=== PATIENT | male | born 1945 | race Caucasian/White ===

== ENCOUNTER 2022-04-24 11:44 | Emergency (ER) | payer OTHER, SELFPAY ==
[2022-04-24 11:45] VITALS: BP 133/91; PULSE 102; RESP 18; TEMP 37.8; O2SAT 94; BMI 33.3
[2022-04-24 13:02] VITALS: BP 119/81; PULSE 92; RESP 14; TEMP 37.2; O2SAT 95
--- NOTE | 2022-04-24 13:37 | EKG12_ITS ---
Test Reason : Blood Pressure : / mmHG Vent. Rate : 082 BPM Atrial Rate : 082 BPM P-R Int : 150 ms QRS Dur : 104 ms QT Int : 390 ms P-R-T Axes : 024 007 010 degrees QTc Int : 455 ms Normal sinus rhythm Inferior infarct , age undetermined Abnormal ECG Confirmed by [place]OR[place] TAYLOR, LUIS ([id number]), copy editor ASUNCION CLAYTON ([id number]) on 04/27/2022 12:41:04 PM Referred By: Confirmed By:LUIS BARTHOLOMEW MD
[2022-04-24 14:01] LABS: Absolute Lymphocyte Count 0.74 X10^3/uL (0.83-4.51); Basophil# 0.01 X10^3/uL; Basophil% 0.2 % (0-1); Eosinophil# 0.01 X10^3/uL; Eosinophils% 0.2 % (0-5); Hematocrit 44.1 % (40-54); Hemoglobin 14.7 g/dL (13.0-16.5); Lymphocyte # 0.74 X10^3/ul (0.83-4.51); Lymphocyte % 17.3 % (19-41); Mean Corp Hgb Conc 33.3 g/dL (32-36); Mean Corpuscular Hgb 29.1 pg (27.0-32.0); Mean Corpuscular Volume 87.2 fL (80-94); Mean Platelet Vol. 10.4 fl (6.2-12.0); Monocyte% 11.7 % (0-10); NRBC Flagged by Analyzer 0 % (0-5); Neutrophil % 70.4 % (47-70); Platelet Count 151 K/mm3 (150-450); RBC Distribution Width CV 13.5 % (11.6-14.6); RBC Distribution Width SD 43.2 fl (35.1-43.9); Red Blood Count 5.06 M/mm3 (4.6-6.2); White Blood Count 4.3 K/mm3 (4.4-11.0)
--- NOTE | 2022-04-24 14:06 | RAD_ITS ---
STUDY: X-RAY CHEST REASON FOR EXAM: Male, 76 years old. Fever, weakness TECHNIQUE: Single AP portable view of the chest. COMPARISON: None. FINDINGS: EKG electrodes are seen. Increased markings at both lung bases worse at the left lung base suggestive of bibasilar atelectasis. Follow-up is recommended. There is no demonstrated pleural abnormality. Normal size heart. Normal mediastinum and hernandez. Normal visualized pulmonary arteries. There is atherosclerotic calcification of the aortic arch with tortuosity. There are diffuse degenerative changes of the visualized thoracic spine. Normal visualized ribs, clavicles, and shoulders. There is no demonstrated abnormality of the visualized soft tissue structures of the upper abdomen. RAD/Chest 1 View (Portable) IMPRESSION: Increased markings at the lung bases slightly worse at the left lung base. Early bibasilar infiltrates should be ruled out. Electronically Signed: Yossi Santos MD at 14:25 EDT ,
[2022-04-24 14:19] LABS: International Normalized Ratio 1.1; Lactic Acid 0.9 mmol/L (0.4-1.9); Prothrombin Time (Protime)PT. 14.2 SECONDS (11.7-14.9)
[2022-04-24 14:20] LABS: Partial Thromboplast Time 26.8 Seconds (24.1-36.2)
[2022-04-24 14:24] LABS: ALB/GLOB Ratio 0.9 RATIO (0.9-2.4); AST(SGOT) 38 U/L (15-37); Alanine Aminotransfer ALT/SGPT 48 U/L (16-61); Albumin, Serum 3.2 g/dL (3.2-5.0); Alkaline Phosphatase 101 U/L (45-117); Anion Gap 7 (5-15); BUN 17 mg/dL (7-18); BUN/Creat Ratio 19.9 RATIO (10-20); CPK Total, Creatine Kinase 94 U/L (39-308); Calcium,Total 8.8 mg/dL (8.5-10.1); Chloride 106 mmol/L (98-107); Creatinine, Serum 0.86 mg/dL (0.70-1.30); EST Glomerular Filtration Rate 93 mL/min (>60); Est Glom Filt Rate - Afr Amer 112 mL/min (>60); Estimated Creatinine Clearance 72.91 ml/min; Globulin 3.7 g/dL (2.2-4.2); Glucose 158 mg/dL (74-106); Potassium 3.6 mmol/L (3.5-5.1); Protein, Total 6.9 g/dL (6.4-8.2); Sodium Level 137 mmol/L (136-145)
[2022-04-24 15:00] VITALS: BP 134/96; PULSE 75; RESP 21; TEMP 36.8; O2SAT 96
[2022-04-24 15:19] VITALS: TEMP 36.8
--- NOTE | 2022-04-24 15:19 | EX.ED.DYSGE1 ---
HPI History of Present Illness Chief Complaint: Fever Informant: patient and spouse/S.O. Narrative Narrative: Patient is a 76-year-old male with history of cholecystitis which was removed a couple months ago by Dr. Ocampo at [facility]. He is presenting with fever for the past 4 days. His T-max has been 102.6. He has had associated cold sweats and feels very weak. He has noticed some dribbling with urination. Denies any nausea, vomiting or change in bowel habits. Denies any associate abdominal discomfort. Has had decreased appetite. Notes that over the past 4 months has had an unintentional 26 pound weight loss. Is complaining of increased flatulence, belching and early satiety. Denies any sick contacts. No other complaints at this time. PFSH PFSH Medical History Diabetes mellitus HLD (hyperlipidemia) Home Medications cefdinir 300 mg capsule 300 mg PO BID 10 days #20 caps 04/24/22 [Rx Last Taken Unknown] ondansetron 4 mg disintegrating tablet 4 mg PO Q6H PRN nausea and vomiting #14 tabs 04/24/22 [Rx Last Taken Unknown] Allergy/AdvReac Type Severity Reaction Status Date / Time No Known Allergies Allergy Verified 04/24/22 11:47 Surgical History Hx of cholecystectomy Social History Smoking Status: Former smoker ROS ROS ED Constitutional Constitutional ED: Reports chills, fever(s), sweats and weight loss Eyes Eyes: Denies change in vision ENT ENT ED: Denies rhinorrhea or sore throat Cardiovascular Cardiovascular: Denies chest pain or palpitations Respiratory/Chest Respiratory/Chest: Denies cough or dyspnea Gastrointestinal Gastrointestinal: Reports diarrhea; Denies abdominal pain, melena, nausea or vomiting Genitourinary Genitourinary ED: Denies dysuria, hematuria or urinary frequency Musculoskeletal Musculoskeletal: Denies arthralgias or myalgias Integumentary Denies Abrasions or rash Neurologic Neurologic: Reports weakness; Denies headache(s) or paresthesias Psychiatric Psychiatric: Denies anxiety or depression EXAM Physical Exam Const Vital Signs: 04/24/22 11:45 04/24/22 12:52 04/24/22 13:02 Temperature 100.1 F H 99.0 F Temperature Source Oral Oral Pulse Rate 102 H 92 Respiratory Rate 18 14 Respiratory Effort Normal Non-Labored Respiratory Pattern Normal Blood Pressure 133/91 H 119/81 H Blood Pressure Mean 105 93 Pulse Ox 94 95 Oxygen Delivery Method Room Air Room Air 04/24/22 13:51 04/24/22 15:00 04/24/22 15:00 Temperature 98.3 F Temperature Source Axillary Pulse Rate 75 75 Respiratory Rate 21 H 21 H Respiratory Effort Respiratory Pattern Blood Pressure 134/96 H 134/96 H Blood Pressure Mean 108 108 Pulse Ox 96 96 Oxygen Delivery Method Room Air Room Air Room Air 04/24/22 15:19 04/24/22 16:35 04/24/22 16:35 Temperature 98.3 F 100.9 F H 100.9 F H Temperature Source Axillary Oral Oral Pulse Rate 77 Respiratory Rate 20 H Respiratory Effort Respiratory Pattern Blood Pressure 171/74 H Blood Pressure Mean 106 Pulse Ox 94 Oxygen Delivery Method Room Air 04/24/22 16:35 Temperature 100.9 F H Temperature Source Oral Pulse Rate 76 Respiratory Rate 20 H Respiratory Effort Respiratory Pattern Blood Pressure 171/74 H Blood Pressure Mean 106 Pulse Ox 97 Oxygen Delivery Method Room Air Positive well nourished and well developed General Appearance ED: well developed and NAD HEENT Reports dry mucous membranes Mouth ED: Yes dry mucous membranes Mouth: dry mucous membranes Eyes PERRL and EOMs intact bilaterally Neck supple and no JVD Chest Wall inspection of chest normal Resp normal respiratory effort and clear to auscultation bilaterally Cardio regular rate, regular rhythm and no murmurs GI normal to inspection, nondistended, normoactive bowel sounds and non-tender Back/Spine General Back: Negative for CVA tenderness Neuro oriented x3, CN's II-XII intact bilaterally and no sensory deficits noted Motor Exam: Negative for general weakness Psych mental status grossly normal Skin no rashes or lesions noted Skin Narrative: Healing surgical incisions on abdomen consistent with recent laparoscopic cholecystectomy MDM MDM MDM Narrative Medical decision making narrative: Patient is evaluated for 3 to 4 days of fever, night sweats and feeling weak. He has noticed some dribbling with urination. No other localizing symptoms. He did have surgery about 2 months ago for his gallbladder but does not have any abdominal pain. He is having regular bowel movements. He has had some unintentional weight loss does have a remote history of prostate cancer. Work-up is remarkable for leukopenia 4.3. Patient is given 500 cc bolus of IV fluids. He does spike a fever in the emergency room and does meet sepsis criteria however his lactate is normal at 0.9. Urinalysis is consistent with infection with 100 leukoesterase, 25-50 white blood cells and 1+ bacteria. CT of the chest is obtained as x-ray shows a questionable bibasilar infiltrates and he did have recent surgery. This will better evaluate whether he truly does have pneumonia versus a PE. Patient is given a dose of IV Rocephin in the ER. He is given Tylenol for his fever. Patient overall is actually very well-appearing with no CVA tenderness and a benign abdominal exam on repeat evaluation. He would like to try outpatient antibiotics. 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 He will be started on Omnicef to cover for Elvin given he is having systemic symptoms. Lab Data Attestation: I reviewed the patient's lab results. Labs: Laboratory Results - last 24 hr 04/24/22 04/24/22 04/24/22 13:05 13:05 13:45 WBC 4.3 L RBC 5.06 Hgb 14.7 Hct 44.1 MCV 87.2 MCH 29.1 MCHC 33.3 RDW Std Deviation 43.2 RDW Coeff of Saloni 13.5 Plt Count 151 MPV 10.4 Immature Gran % (Auto) 0.200 Neut % (Auto) 70.4 H Lymph % (Auto) 17.3 L [place] % (Auto) 11.7 H Eos % (Auto) 0.2 Baso % (Auto) 0.2 Absolute Neuts (auto) 3.0 Absolute Lymphs (auto) 0.74 L Nucleated RBC % 0 PT 14.2 INR 1.1 APTT 26.8 Sodium 137 Potassium 3.6 Chloride 106 Carbon Dioxide 24.0 Anion Gap 7 BUN 17 Creatinine 0.86 Estim Creat Clear Calc 72.91 Est GFR (MDRD) Af Amer 112 Est GFR (MDRD) Non-Af 93 BUN/Creatinine Ratio 19.9 Glucose 158 H Lactic Acid Calcium 8.8 Total Bilirubin 1.00 AST 38 H ALT 48 Alkaline Phosphatase 101 Total Creatine Kinase 94 Total Protein 6.9 Albumin 3.2 Globulin 3.7 Albumin/Globulin Ratio 0.9 Urine Color Urine Clarity Urine pH Ur Specific [place] Urine Protein Urine Glucose (UA) Urine Ketones Urine Occult Blood Urine Nitrite Urine Bilirubin Urine Urobilinogen Ur Leukocyte Esterase Urine RBC Urine WBC Ur Squamous Epith Cells Urine Bacteria Urine Mucus 04/24/22 04/24/22 13:45 16:00 WBC RBC Hgb Hct MCV MCH MCHC RDW Std Deviation RDW Coeff of Saloni Plt Count MPV Immature Gran % (Auto) Neut % (Auto) Lymph % (Auto) [place] % (Auto) Eos % (Auto) Baso % (Auto) Absolute Neuts (auto) Absolute Lymphs (auto) Nucleated RBC % PT INR APTT Sodium Potassium Chloride Carbon Dioxide Anion Gap BUN Creatinine Estim Creat Clear Calc Est GFR (MDRD) Af Amer Est GFR (MDRD) Non-Af BUN/Creatinine Ratio Glucose Lactic Acid 0.9 Calcium Total Bilirubin AST ALT Alkaline Phosphatase Total Creatine Kinase Total Protein Albumin Globulin Albumin/Globulin Ratio Urine Color Yellow Urine Clarity Clear Urine pH 6.0 Ur Specific [place] 1.020 Urine Protein 30 H Urine Glucose (UA) 1000 H Urine Ketones 15 H Urine Occult Blood 10 H Urine Nitrite Negative Urine Bilirubin Negative Urine Urobilinogen Normal Ur Leukocyte Esterase 100 H Urine RBC 0-5 SEEN Urine WBC 25-50 SEEN Ur Squamous Epith Cells 0-5 SEEN Urine Bacteria 1+ Urine Mucus 0 SEEN Radiography Chest X-Ray - ED: 1 View, Read by ED Physician, Read by Radiologist, Right Infiltrate and Left Infiltrate Diagnostic Testing: Clinical Impression(s) from Imaging Studies Chest X-Ray 04/24/22 14:06 IMPRESSION: Increased markings at the lung bases slightly worse at the left lung base. Early bibasilar infiltrates should be ruled out. Electronically Signed: Yossi Santos MD at 14:25 EDT , Chest CTA 04/24/22 15:23 IMPRESSION: Mild atherosclerotic changes of the thoracic aorta and coronary arteries. Otherwise normal CTA chest examination, without a demonstrated pulmonary embolism or arterial dissection. Electronically Signed: Charly Gómez DO at 16:34 EDT Reading Location ID and State: [address] [place] [address] Tel [phone], Service support , Rhythm Strip Rhythm Strip: Sinus Rhythm Rate: 82 Ectopy: None EKG Initial EKG: Attestation: I personally reviewed and interpreted this EKG as follows: Interpretation: Sinus Rhythm Comments: Normal sinus rhythm and rate of 82 Normal axis Normal intervals Normal ST segments Discharge Plan Triage Chief Complaint: Fever ED Provider: Porsha Vincent Dx/Rx/DC Orders Clinical Impression: Urinary tract infection in male, Fever Instructions: ED Bladder Infection, Male (Adult) Prescriptions: New cefdinir 300 mg capsule 300 mg PO BID 10 Days Qty: 20 0RF ondansetron 4 mg tablet,disintegrating 4 mg PO Q6H PRN (Reason: nausea and vomiting) Qty: 14 0RF Primary Care Provider: Santino Villarreal Referrals: Santino Villarreal PA [Primary Care Provider] - Activity Restrictions/Additional Instructions: Please return to the emergency room if child has worsening symptoms, especially is not improved in the next 24 to 48 hours. Disposition Disposition: Home, Self Care
--- NOTE | 2022-04-24 15:23 | CT_ITS ---
STUDY: CTA CHEST REASON FOR EXAM: Male, 76 years old. Fever. Pulmonary emboli versus pneumonia. RADIATION DOSAGE (If Supplied By Facility): CTDIvol = ( 13.56 ) mGy, DLP = ( 560.88 ) mGycm TECHNIQUE: The examination was performed with the intravenous administration of IV 75mL Isovue-370. Post-processing of the angiographic images was performed, with multiplanar reformation and 3D reconstruction. Individualized dose optimization techniques were used for this CT. COMPARISON: Chest, 04/24/2022. FINDINGS: Normal enhancement of the main pulmonary artery and right and left pulmonary arteries. Normal enhancement of the bilateral peripheral pulmonary arteries. There is no demonstrated pulmonary embolism. Atherosclerotic changes of the thoracic aorta without aneurysm. There is no demonstrated aortic dissection. Normal heart and pericardium. Coronary artery calcifications. Normal mediastinum. Normal hilar regions. Normal visualized trachea and bronchi. The lungs are well expanded. Normal pulmonary parenchyma. Normal pleura. Normal chest wall structures. Normal osseous structures. Normal visualized upper abdomen. CT/CTA Chest W/WO Contrast IMPRESSION: Mild atherosclerotic changes of the thoracic aorta and coronary arteries. Otherwise normal CTA chest examination, without a demonstrated pulmonary embolism or arterial dissection. Electronically Signed: Charly Gómez DO at 16:34 EDT ,
[2022-04-24 16:09] LABS: Mucous, Urine 0 SEEN /hpf (<or=2+)
[2022-04-24 16:24] LABS: Color, Urine Yellow (Yellow); Glucose, Dipstick 1000 mg/dl (Normal); Ketone-Dipstick 15 mg/dl (Negative); Leukocyte Esterase-Dipstick 100 /ul (Negative); Nitrite-Dipstick Negative (Negative); Occult Blood-Urine 10 /ul (Negative); Protein-Dipstick 30 mg/dl (Negative); Urine Bilirubin Dipstick Negative (Negative); Urine Clarity Clear (Clear); Urine Urobilinogen Normal (Normal)
[2022-04-24 16:35] VITALS: BP 171/74; PULSE 76; PULSE 77; RESP 20; TEMP 38.3; O2SAT 94; O2SAT 97
[2022-04-24 16:42] LABS: Bacteria 1+ /hpf (None Seen); Red Blood Cells-Urine 0-5 SEEN /hpf (0-5); Squamous Epithelial Cells - UA 0-5 SEEN /hpf (0-5); White Blood Cells 25-50 SEEN /hpf (0-5)
[2022-04-24] MEDS: Acetaminophen 325 MG Tablet 650 MG PO (16:47)
[2022-04-24] MEDS: Ceftriaxone 1 GM/50 ML BAG IV (17:16)
[2022-04-24 18:13] VITALS: BP 128/77; PULSE 62; O2SAT 96
== END 2022-04-24 18:16 | disposition home or self-care (01) ==
PROVIDERS: Emergency Provider Emergency Medicine; PCP Physician Assistant; Visit Provider Emergency Medicine
DX: N39.0 Urinary tract infection, site not specified (principal); R50.9 Fever, unspecified; Z87.891 Personal history of nicotine dependence
CPT/HCPCS: 71045; 71275; 80053; 81001; 82550; 83605; 85025; 85610; 85730; 87040; 87086; 87088; 87811; 93005; 96361; 96365; 99284; J7040; J7050; Q9967; A4216

== ENCOUNTER 2022-04-30 19:25 | Emergency (ER) | payer OTHER, SELFPAY ==
[2022-04-30 19:26] VITALS: BP 108/69; PULSE 99; RESP 18; TEMP 36.9; O2SAT 98; BMI 32.3
[2022-04-30 19:28] VITALS: BP 108/69; PULSE 99; RESP 18; TEMP 36.9; O2SAT 98
--- NOTE | 2022-04-30 19:35 | RAD_ITS ---
STUDY: X-RAY CHEST REASON FOR EXAM: Male, 76 years old. Fever and abdominal pain. TECHNIQUE: Single AP portable view of the chest. COMPARISON: 04/24/2022 FINDINGS: Slightly improved inspiratory effort when compared to the earlier exam. Decreasing linear atelectasis at the right lung base. Lungs are otherwise clear. There is no demonstrated pleural abnormality. Normal size heart. Normal mediastinum and hernandez. Normal visualized pulmonary arteries. Normal visualized aortic arch and descending thoracic aorta. The thoracic spine is obscured by the mediastinum. There is degenerative osteoarthritis of the bilateral shoulders. There is no demonstrated abnormality of the visualized soft tissue structures of the upper abdomen. RAD/Chest 1 View (Portable) IMPRESSION: Mildly improved inspiratory effort with decreasing right basilar atelectasis. The study is otherwise unchanged. Electronically Signed: Charly Gómez DO at 21:21 EDT ,
--- NOTE | 2022-04-30 19:45 | ED.VIS.GI ---
HPI HPI - GI History of Present Illness Chief Complaint: Complaint Narrative Narrative: 76-year-old male presenting with left lower quadrant abdominal pain, nausea, diarrhea, fever of 101 at home. Patient was seen about 5 days ago for febrile illness and at that point he was noting that he had some dribbling in his urine. He was diagnosed with UTI pyelonephritis and was put on cefdinir. He states that he had been improving up until the last couple of days. Yesterday he had a temperature of 99.1 and today he had a fever of 101. He notes that the diarrhea is new over the last 4 days. No urinary complaints. No shortness of breath, chest pain,, cough. PFSH PFSH Medical History Diabetes mellitus HLD (hyperlipidemia) Home Medications cefdinir 300 mg capsule 300 mg PO BID 10 days #20 caps 04/24/22 [Rx Last Taken Unknown] ondansetron 4 mg disintegrating tablet 4 mg PO Q6H PRN nausea and vomiting #14 tabs 04/24/22 [Rx Last Taken Unknown] amoxicillin 875 mg-potassium clavulanate 125 mg tablet 1 tab PO BID #24 tabs 04/30/22 [Rx Last Taken Unknown] Allergy/AdvReac Type Severity Reaction Status Date / Time No Known Allergies Allergy Verified 04/30/22 19:28 Surgical History Hx of cholecystectomy Social History Smoking Status: Former smoker ROS ROS ED Constitutional Constitutional ED: Reports chills and fever(s) ENT ENT ED: Denies rhinorrhea or sore throat Cardiovascular Cardiovascular: Denies palpitations or racing heartbeat Respiratory/Chest Respiratory/Chest: Denies cough or dyspnea Gastrointestinal Gastrointestinal: Reports abdominal pain, diarrhea and nausea; Denies melena or vomiting Genitourinary Genitourinary ED: Denies dysuria or hematuria Musculoskeletal Musculoskeletal: Denies arthralgias or back pain Integumentary Denies abscess or Abrasions Neurologic Neurologic: Denies headache(s) Psychiatric Psychiatric: Denies anxiety or depression Endocrine Endocrinology: Denies polydipsia or polyphagia EXAM Physical Exam Const Vital Signs: 04/30/22 19:26 04/30/22 19:28 04/30/22 21:28 Temperature 98.5 F 98.5 F 98.4 F Temperature Source Temporal Temporal Temporal Pulse Rate 99 99 87 Respiratory Rate 18 18 22 H Blood Pressure 108/69 108/69 110/74 Blood Pressure Mean 82 86 Pulse Ox 98 98 99 Oxygen Delivery Method Room Air Room Air Room Air 04/30/22 21:59 Temperature Temperature Source Pulse Rate 81 Respiratory Rate 16 Blood Pressure Blood Pressure Mean Pulse Ox 99 Oxygen Delivery Method Positive well nourished and obese General Appearance ED: NAD; Negative for pallor Nutritional Appearance: obese HEENT Reports TM's clear and moist mucous membranes Tympanic Membrane ED: Yes TM's clear Eyes PERRL and EOMs intact bilaterally Neck no lymphadenopathy Resp normal respiratory effort and clear to auscultation bilaterally Cardio regular rate and regular rhythm GI Auscultation: normoactive bowel sounds Palpation: tender LLQ Neuro CN's II-XII intact bilaterally, moves all extremities and no sensory deficits noted Sensorium / Orientation: alert, oriented to person and oriented to place Motor Exam: strength 5/5 throughout Psych mental status grossly normal and thought process normal Skin General Skin Exam: Negative for jaundice or pallor MDM MDM MDM Narrative Medical decision making narrative: Patient presenting with left lower quadrant pain which she can localize with 1 finger. He has diarrhea. He admits to eating nuts this week as well. No history of diverticulitis. Blood work is obtained and his CBC shows a leukocytosis of 14.7. Hemoglobin medic are stable. Renal function electrolytes unremarkable. LFTs within normal limits. Urinalysis is negative. Chest x-ray my interpretation shows no acute cardiopulmonary process and the radiologist agree CT of the abdomen pelvis with IV contrast is obtained and shows acute diverticulitis is uncomplicated. Patient counseled that his previous urine culture was negative and he did not have pyelonephritis. He is to discontinue his other antibiotic single started on Augmentin. He has Zofran at home and does not need a refill. Impression 1. acute sigmoid diverticulitis?uncomplicated 2. Nausea 3. Leukocytosis Lab Data Attestation: I reviewed the patient's lab results. Labs: Laboratory Results - last 24 hr 04/30/22 04/30/22 04/30/22 19:38 19:48 19:48 WBC 14.7 H RBC 4.58 L Hgb 13.4 Hct 40.1 MCV 87.6 MCH 29.3 MCHC 33.4 RDW Std Deviation 43.2 RDW Coeff of Saloni 13.6 Plt Count 201 MPV 9.9 Immature Gran % (Auto) 0.400 Neut % (Auto) 77.4 H Lymph % (Auto) 15.4 L [place] % (Auto) 6.2 Eos % (Auto) 0.5 Baso % (Auto) 0.1 Absolute Neuts (auto) 11.4 H Absolute Lymphs (auto) 2.26 Nucleated RBC % 0 Sodium 141 Potassium 3.4 L Chloride 109 H Carbon Dioxide 24.0 Anion Gap 8 BUN 11 Creatinine 0.68 L Estim Creat Clear Calc 64.81 Est GFR (MDRD) Af Amer 146 Est GFR (MDRD) Non-Af 120 BUN/Creatinine Ratio 16.1 Glucose 95 Calcium 8.7 Total Bilirubin 1.00 AST 20 ALT 44 Alkaline Phosphatase 93 Total Protein 6.5 Albumin 3.1 L Globulin 3.4 Albumin/Globulin Ratio 0.9 Urine Color Yellow Urine Clarity Clear Urine pH 7.0 Ur Specific [place] 1.010 Urine Protein 15 H Urine Glucose (UA) 1000 H Urine Ketones 5 H Urine Occult Blood Negative Urine Nitrite Negative Urine Bilirubin Negative Urine Urobilinogen Normal Ur Leukocyte Esterase 25 H Urine RBC 0 SEEN Urine WBC 0-5 SEEN Ur Squamous Epith Cells 0 SEEN Urine Bacteria 0 SEEN Urine Mucus 0 SEEN Radiography Diagnostic Testing: Clinical Impression(s) from Imaging Studies Chest X-Ray 04/30/22 19:35 IMPRESSION: Mildly improved inspiratory effort with decreasing right basilar atelectasis. The study is otherwise unchanged. Electronically Signed: Charly Gómez DO at 21:21 EDT Reading Location ID and State: [place] / [employer] Tel [phone], Service support , Abdomen/Pelvis CT 04/30/22 20:35 IMPRESSION: 1. Uncomplicated sigmoid diverticulitis. 2. Multiple nonobstructing left renal calculi. 3. Enlarged prostate. 4. Nondistended stomach. The possibility of gastritis cannot be ruled out. 5. Marked spondylolisthesis at L5-S1 with pars defects. Electronically Signed: Charly Gómez DO at 21:36 EDT Reading Location ID and State: [place] / [employer] Tel [phone], Service support , Discharge Plan Triage Chief Complaint: Complaint ED Provider: Darius Gonzales Dx/Rx/DC Orders Instructions: ED Diverticulitis Prescriptions: New amoxicillin-pot clavulanate 875-125 mg tablet 1 tab PO BID Qty: 24 0RF No Action cefdinir 300 mg capsule 300 mg PO BID 10 Days Qty: 20 0RF ondansetron 4 mg tablet,disintegrating 4 mg PO Q6H PRN (Reason: nausea and vomiting) Qty: 14 0RF Primary Care Provider: Santino Villarreal Referrals: Santino Villarreal, PA [Primary Care Provider] - Disposition Disposition: Home, Self Care Discharge Date/Time: 04/30/22 22:00
[2022-04-30 19:49] LABS: Bacteria 0 SEEN /hpf (None Seen); Mucous, Urine 0 SEEN /hpf (<or=2+); Red Blood Cells-Urine 0 SEEN /hpf (0-5); Squamous Epithelial Cells - UA 0 SEEN /hpf (0-5)
[2022-04-30 19:55] LABS: Color, Urine Yellow (Yellow); Glucose, Dipstick 1000 mg/dl (Normal); Ketone-Dipstick 5 mg/dl (Negative); Leukocyte Esterase-Dipstick 25 /ul (Negative); Nitrite-Dipstick Negative (Negative); Occult Blood-Urine Negative /ul (Negative); Protein-Dipstick 15 mg/dl (Negative); Urine Bilirubin Dipstick Negative (Negative); Urine Clarity Clear (Clear); Urine Urobilinogen Normal (Normal)
[2022-04-30 19:56] LABS: Absolute Lymphocyte Count 2.26 X10^3/uL (0.83-4.51); Absolute Neutrophil Count 11.4 X10^3/uL (2.0-7.7); Basophil# 0.02 X10^3/uL; Basophil% 0.1 % (0-1); Eosinophil# 0.08 X10^3/uL; Eosinophils% 0.5 % (0-5); Hematocrit 40.1 % (40-54); Hemoglobin 13.4 g/dL (13.0-16.5); Lymphocyte # 2.26 X10^3/ul (0.83-4.51); Lymphocyte % 15.4 % (19-41); Mean Corp Hgb Conc 33.4 g/dL (32-36); Mean Corpuscular Hgb 29.3 pg (27.0-32.0); Mean Corpuscular Volume 87.6 fL (80-94); Mean Platelet Vol. 9.9 fl (6.2-12.0); Monocyte# 0.91 X10^3/uL; Monocyte% 6.2 % (0-10); NRBC Flagged by Analyzer 0 % (0-5); Neutrophil # 11.39 X10^3/uL (2.7-7.7); Neutrophil % 77.4 % (47-70); Platelet Count 201 K/mm3 (150-450); RBC Distribution Width CV 13.6 % (11.6-14.6); RBC Distribution Width SD 43.2 fl (35.1-43.9); Red Blood Count 4.58 M/mm3 (4.6-6.2); White Blood Count 14.7 K/mm3 (4.4-11.0)
[2022-04-30] MEDS: 0.9% Normal Saline 1,000 ML 999 ML IV (20:02)
[2022-04-30] MEDS: Morphine 4 MG/ML Syringe IV (20:02)
[2022-04-30] MEDS: Ondansetron 4 MG/2 ML Vial IV (20:02)
[2022-04-30 20:12] LABS: ALB/GLOB Ratio 0.9 RATIO (0.9-2.4); AST(SGOT) 20 U/L (15-37); Alanine Aminotransfer ALT/SGPT 44 U/L (16-61); Albumin, Serum 3.1 g/dL (3.2-5.0); Alkaline Phosphatase 93 U/L (45-117); Anion Gap 8 (5-15); BUN 11 mg/dL (7-18); BUN/Creat Ratio 16.1 RATIO (10-20); Calcium,Total 8.7 mg/dL (8.5-10.1); Chloride 109 mmol/L (98-107); Creatinine, Serum 0.68 mg/dL (0.70-1.30); EST Glomerular Filtration Rate 120 mL/min (>60); Est Glom Filt Rate - Afr Amer 146 mL/min (>60); Estimated Creatinine Clearance 64.81 ml/min; Globulin 3.4 g/dL (2.2-4.2); Glucose 95 mg/dL (74-106); Potassium 3.4 mmol/L (3.5-5.1); Protein, Total 6.5 g/dL (6.4-8.2); Sodium Level 141 mmol/L (136-145)
[2022-04-30 20:33] LABS: White Blood Cells 0-5 SEEN /hpf (0-5)
--- NOTE | 2022-04-30 20:35 | CT_ITS ---
STUDY: CT ABDOMEN AND PELVIS WITH CONTRAST REASON FOR EXAM: Male, 76 years old. Left lower quadrant abdominal pain. RADIATION DOSAGE (If Supplied By Facility): CTDIvol = ( 15.28 ) mGy, DLP = ( 1121.60 ) mGycm TECHNIQUE: Transaxial images were obtained from the dome of the diaphragm to the symphysis pubis without oral contrast. IV 100mL Isovue-300 was administered. Sagittal and coronal images were reconstructed. Individualized dose optimization techniques were used for this CT. COMPARISON: None. FINDINGS: The visualized lung bases are unremarkable. The visualized portions of the heart are within normal limits. Right coronary artery calcifications Normal liver. There is non-visualization of the gallbladder, which may be secondary to either contraction or a prior cholecystectomy. No biliary ductal dilatation. Normal spleen. There is minimal stranding in the retroperitoneal fat about the pancreatic tail. The pancreas is of normal enhancement in appearance. Question mild pancreatitis. Normal bilateral adrenal glands. The right kidney is of normal size and enhancement. There is minimal stranding of the perinephric fat. There is no mass, cyst or renal calculi. No hydronephrosis. Normal right ureter. The left kidney is normal in size and cortical enhancement. There are multiple nonobstructing left renal calculi. The largest, in the lower pole calyx measures 1 cm in greatest dimension. There is no enhancing mass or cysts. No hydronephrosis. Normal left ureter. Stomach is poorly distended with uniformly thickened wall. Normal small intestine. There is colonic diverticulosis. There is wall thickening and stranding at the proximal sigmoid colon consistent with diverticulitis. The colon is otherwise unremarkable. The appendix is visualized and appears normal. There is diffuse atherosclerotic calcification of the abdominal aorta, without a demonstrated aneurysm. Normal inferior vena cava. Normal retroperitoneum. Normal urinary bladder. Enlarged prostate. No pelvic lymphadenopathy. No free air or free fluid is seen within the peritoneal cavity. Normal abdominal wall. Flattening of lumbar lordosis. There is marked anterolisthesis of L5 on S1 with bilateral pars defects. CT/Abdomen/Pelvis W IV Cont ONLY IMPRESSION: 1. Uncomplicated sigmoid diverticulitis. 2. Multiple nonobstructing left renal calculi. 3. Enlarged prostate. 4. Nondistended stomach. The possibility of gastritis cannot be ruled out. 5. Marked spondylolisthesis at L5-S1 with pars defects. Electronically Signed: Charly Gómez DO at 21:36 EDT Reading Location ID and State: [facility] / [place] Tel [phone], Service support ,
[2022-04-30 21:28] VITALS: BP 110/74; PULSE 87; RESP 22; TEMP 36.9; O2SAT 99
[2022-04-30] MEDS: Amox/Clavulanate 875 MG Tablet PO (21:56)
[2022-04-30 21:59] VITALS: PULSE 81; RESP 16; O2SAT 99
== END 2022-04-30 22:00 | disposition home or self-care (01) ==
PROVIDERS: Emergency Provider Student in an Organized Health Care Education/Training Program; PCP Physician Assistant; Visit Provider Student in an Organized Health Care Education/Training Program
DX: K57.32 Diverticulitis of large intestine without perforation or abscess without bleeding (principal); R11.0 Nausea; D72.829 Elevated white blood cell count, unspecified; E66.9 Obesity, unspecified; Z87.891 Personal history of nicotine dependence
CPT/HCPCS: 71045; 74177; 80053; 81001; 85025; 96361; 96374; 96375; 99284; J7030; Q9967; A4216; J2405

== ENCOUNTER 2022-09-12 14:06 | Emergency (ER) | payer OTHER, SELFPAY ==
[2022-09-12 14:07] VITALS: BP 137/84; PULSE 102; RESP 16; TEMP 36.3; O2SAT 95; BMI 28.0
[2022-09-12 15:26] LABS: Bacteria 0 SEEN /hpf (None Seen); Mucous, Urine 0 SEEN /hpf (<or=2+); Squamous Epithelial Cells - UA 0 SEEN /hpf (0-5)
--- NOTE | 2022-09-12 15:27 | EDS_ITS ---
HPI History of Present Illness Chief Complaint: General Illness Narrative Narrative: 76-year-old male with difficulty eating for about 10 months now presenting with nausea and vomiting. He states that over the last 2 days he has been having difficulty holding down food. He states he typically will drink about 6 bottles of water a day but over the last 2 days he is only been able to hold down about 2. He has not had a fever, chills. He has chronic diarrhea that is unchanged. No black or bloody stools. He states he does have a history of iron deficiency anemia. He had upper endoscopy performed by Dr. Ocampo 08/18/2022 which was normal. He had colonoscopy performed at the same time which was also normal. Patient is on Prilosec 40 mg p.o. twice daily. He just darted Carafate the day before yesterday. He does not have anything for nausea. [facility] Medical History Diabetes mellitus HLD (hyperlipidemia) Home Medications cefdinir 300 mg capsule 300 mg PO BID 10 days #20 caps 04/24/22 [Rx Last Taken Unknown] ondansetron 4 mg disintegrating tablet 4 mg PO Q6H PRN nausea and vomiting #14 tabs 04/24/22 [Rx Last Taken Unknown] amoxicillin 875 mg-potassium clavulanate 125 mg tablet 1 tab PO BID #24 tabs 04/30/22 [Rx Last Taken Unknown] cephalexin 500 mg capsule 500 mg PO Q12 #14 caps 09/12/22 [Rx Last Taken Unknown] ondansetron 4 mg disintegrating tablet 4 mg PO Q8H PRN nausea and vomiting #14 tabs 09/12/22 [Rx Last Taken Unknown] Allergy/AdvReac Type Severity Reaction Status Date / Time No Known Allergies Allergy Verified 09/12/22 14:07 Surgical History Hx of cholecystectomy Social History Smoking Status: Former smoker ROS ROS ED Constitutional Constitutional ED: Denies chills or fever(s) Eyes Eyes: Denies change in vision or diplopia ENT ENT ED: Denies rhinorrhea or sore throat Cardiovascular Cardiovascular: Denies chest pain or palpitations Respiratory/Chest Respiratory/Chest: Denies cough or dyspnea Gastrointestinal Gastrointestinal: Reports diarrhea, nausea and vomiting Genitourinary Genitourinary ED: Denies dysuria or hematuria Musculoskeletal Musculoskeletal: Denies arthralgias or back pain Integumentary Denies abscess Neurologic Neurologic: Denies headache(s) or paresthesias Psychiatric Psychiatric: Denies anxiety or depression EXAM Physical Exam Const Vital Signs: 09/12/22 14:07 Temperature 97.4 F L Temperature Source Temporal Pulse Rate 102 H Respiratory Rate 16 Blood Pressure 137/84 H Blood Pressure Mean 101 Pulse Ox 95 Oxygen Delivery Method Room Air Positive well nourished General Appearance ED: NAD HEENT Reports moist mucous membranes Eyes PERRL and EOMs intact bilaterally General Eye ED: Negative for pale conjunctiva or scleral icterus Resp normal respiratory effort and clear to auscultation bilaterally GI GI Narrative: Benign abdominal exam Extremity normal to inspection Neuro oriented x3 and CN's II-XII intact bilaterally Sensorium / Orientation: alert Psych mental status grossly normal Skin no rashes or lesions noted MDM MDM MDM Narrative Medical decision making narrative: Patient presenting with nausea and vomiting over the last 2 days. He is not had fever, chills, body aches. He has chronic diarrhea that is unchanged. He is not having a cough or shortness of breath. He does state that he has acid reflux and is recently been started on Carafate for this. He takes omeprazole 40 mg p.o. twice daily. He had recent upper and lower endoscopy in early August which was normal. His last BMP on 10 September showed his creatinine was 0.67, BUN 9. Electrolytes were normal. Glucose slightly elevated at 141. Patient's last CBC was 04/30/2022 when he was in the emergency room. He had a leukocytosis of 14.7. At that point he had diverticulitis. He is not complaining of left lower quadrant abdominal pain. He also recently had upper and lower endoscopy which was normal. Patient was treated with Zofran. I will check basic lab work to make sure is not dehydrated. Given a liter of normal saline. CBC shows no leukocytosis today. His white blood count is 7.8. Hemoglobin 12.6, platelets 191. Renal function electrolytes are normal. Urinalysis shows 500 leukocyte esterase with 0-5 red blood cells, 50-100 white blood cells. I will cover him for UTI with Keflex. He is also given Zofran for home. He is counseled to follow-up with his primary care physician. He will continue Carafate at home as well. Impression: 1. Nausea/vomiting 2. UTI Lab Data Attestation: I reviewed the patient's lab results. Labs: Laboratory Results - last 24 hr 09/12/22 09/12/22 09/12/22 15:20 15:55 15:55 WBC 7.8 RBC 4.70 Hgb 12.6 L Hct 38.5 L MCV 81.9 MCH 26.8 L MCHC 32.7 RDW Std Deviation 39.8 RDW Coeff of Saloni 13.4 Plt Count 191 MPV 10.7 Immature Gran % (Auto) 0.400 Neut % (Auto) 76.8 H Lymph % (Auto) 15.3 L Moca % (Auto) 7.1 Eos % (Auto) 0.3 Baso % (Auto) 0.1 Absolute Neuts (auto) 6.0 Absolute Lymphs (auto) 1.20 Nucleated RBC % 0 Sodium 135 L Potassium 3.8 Chloride 103 Carbon Dioxide 25.0 Anion Gap 7 BUN 9 Creatinine 0.49 L Estim Creat Clear Calc 64.81 Est GFR (MDRD) Af Amer 215 Est GFR (MDRD) Non-Af 178 BUN/Creatinine Ratio 18.5 Glucose 162 H Calcium 8.6 Urine Color Yellow Urine Clarity Sl. Cloudy Urine pH 6.5 Ur Specific [place] 1.015 Urine Protein 15 H Urine Glucose (UA) 1000 H Urine Ketones 150 A* Urine Occult Blood 10 H Urine Nitrite Negative Urine Bilirubin Negative Urine Urobilinogen Normal Ur Leukocyte Esterase 500 H Urine RBC 0-5 SEEN Urine WBC 50-100 SEEN Ur Squamous Epith Cells 0 SEEN Urine Bacteria 0 SEEN Hyaline Casts 0-5 SEEN Urine Mucus 0 SEEN Discharge Plan Triage Chief Complaint: General Illness ED Provider: Darius Gonzales Dx/Rx/DC Orders Prescriptions: New cephalexin 500 mg capsule 500 mg PO Q12 Qty: 14 0RF ondansetron 4 mg tablet,disintegrating 4 mg PO Q8H PRN (Reason: nausea and vomiting) Qty: 14 0RF No Action cefdinir 300 mg capsule 300 mg PO BID 10 Days Qty: 20 0RF ondansetron 4 mg tablet,disintegrating 4 mg PO Q6H PRN (Reason: nausea and vomiting) Qty: 14 0RF amoxicillin-pot clavulanate 875-125 mg tablet 1 tab PO BID Qty: 24 0RF Primary Care Provider: Santino Villarreal Referrals: Santino Villarreal, PA [Primary Care Provider] - Disposition Disposition: Home, Self Care
[2022-09-12 16:00] LABS: Color, Urine Yellow (Yellow); Glucose, Dipstick 1000 mg/dl (Normal); Leukocyte Esterase-Dipstick 500 /ul (Negative); Nitrite-Dipstick Negative (Negative); Occult Blood-Urine 10 /ul (Negative); Protein-Dipstick 15 mg/dl (Negative); Specific Gravity, Urine 1.015 (1.002-1.030); Urine Bilirubin Dipstick Negative (Negative); Urine Clarity Sl. Cloudy (Clear); Urine Urobilinogen Normal (Normal); Urine pH 6.5 (5.0 - 8.0)
[2022-09-12 16:01] LABS: Basophil# 0.01 X10^3/uL; Basophil% 0.1 % (0-1); Eosinophil# 0.02 X10^3/uL; Eosinophils% 0.3 % (0-5); Hematocrit 38.5 % (40-54); Hemoglobin 12.6 g/dL (13.0-16.5); Lymphocyte % 15.3 % (19-41); Mean Corp Hgb Conc 32.7 g/dL (32-36); Mean Corpuscular Hgb 26.8 pg (27.0-32.0); Mean Corpuscular Volume 81.9 fL (80-94); Mean Platelet Vol. 10.7 fl (6.2-12.0); Monocyte# 0.56 X10^3/uL; Monocyte% 7.1 % (0-10); NRBC Flagged by Analyzer 0 % (0-5); Neutrophil # 6.02 X10^3/uL (2.7-7.7); Neutrophil % 76.8 % (47-70); Platelet Count 191 K/mm3 (150-450); RBC Distribution Width CV 13.4 % (11.6-14.6); RBC Distribution Width SD 39.8 fl (35.1-43.9); White Blood Count 7.8 K/mm3 (4.4-11.0)
[2022-09-12] MEDS: Ondansetron 4 MG/2 ML Vial IV (16:01)
[2022-09-12] MEDS: 0.9% Normal Saline 1,000 ML 999 ML IV (16:01)
[2022-09-12 16:06] VITALS: RESP 18
[2022-09-12 16:14] LABS: Ketone-Dipstick 150 mg/dl (Negative)
[2022-09-12 16:21] LABS: Anion Gap 7 (5-15); BUN 9 mg/dL (7-18); BUN/Creat Ratio 18.5 RATIO (10-20); Calcium,Total 8.6 mg/dL (8.5-10.1); Chloride 103 mmol/L (98-107); Creatinine, Serum 0.49 mg/dL (0.70-1.30); EST Glomerular Filtration Rate 178 mL/min (>60); Est Glom Filt Rate - Afr Amer 215 mL/min (>60); Estimated Creatinine Clearance 64.81 ml/min; Glucose 162 mg/dL (74-106); Potassium 3.8 mmol/L (3.5-5.1); Sodium Level 135 mmol/L (136-145)
[2022-09-12 16:21] LABS: Hyaline Cast 0-5 SEEN /lpf (0-5); Red Blood Cells-Urine 0-5 SEEN /hpf (0-5); White Blood Cells 50-100 SEEN /hpf (0-5)
[2022-09-12 16:28] VITALS: RESP 18
[2022-09-12] MEDS: Cephalexin 250 MG Capsule 500 MG PO (16:46)
== END 2022-09-12 16:54 | disposition home or self-care (01) ==
PROVIDERS: Emergency Provider Student in an Organized Health Care Education/Training Program; PCP Physician Assistant; Visit Provider Student in an Organized Health Care Education/Training Program
DX: N39.0 Urinary tract infection, site not specified (principal); E11.9 Type 2 diabetes mellitus without complications; R11.2 Nausea with vomiting, unspecified; E78.5 Hyperlipidemia, unspecified; K21.9 Gastro-esophageal reflux disease without esophagitis; Z87.891 Personal history of nicotine dependence
CPT/HCPCS: 80048; 81001; 85025; 87086; 87088; 96374; 99282; J7030; J2405

== ENCOUNTER → 2022-10-09 | Outpatient (CLI) | payer MEDICARE, SELFPAY ==
[2022-10-09 13:21] LABS: Anion Gap 7 (5-15); BUN 18 mg/dL (7-18); BUN/Creat Ratio 27.8 RATIO (10-20); Calcium,Total 8.5 mg/dL (8.5-10.1); Chloride 100 mmol/L (98-107); Creatinine, Serum 0.65 mg/dL (0.70-1.30); EST Glomerular Filtration Rate 128 mL/min (>60); Est Glom Filt Rate - Afr Amer 155 mL/min (>60); Glucose 212 mg/dL (74-106); Potassium 3.3 mmol/L (3.5-5.1); Sodium Level 135 mmol/L (136-145)
== END | disposition home or self-care (01) ==
LOC: LABSPEC 12:59
PROVIDERS: PCP Physician Assistant; Referring Provider Internal Medicine Hematology & Oncology; Visit Provider Internal Medicine Hematology & Oncology
DX: C67.4 Malignant neoplasm of posterior wall of bladder (principal)
CPT/HCPCS: 80048